=== PATIENT | male | born 1995 | race Caucasian/White ===

== ENCOUNTER 2020-11-22 19:54 | Emergency (ER) | payer OTHER ==
[~2020-11-22] VITALS: Ht 177.8 cm; Wt 75.7 kg
[2020-11-22 20:30] VITALS: BP_SYST 119
--- NOTE | 2020-11-22 20:30 | NUR ---
Pt c/o acute right hand pain and swelling x1 day. Patient reported that he had gotten angry earlier and decided to punch a basketball pole. He denied any other traumas or injuries. Denied any open wounds or bleeding/discharge. Denied numbness or motor or sensory deficits. No alleviating or exacerbating factors. Patient was prompted to come to the ED when his pain persisted. Pt breathing easy, unlabored. Pt ambulatory with steady gait
--- NOTE | 2020-11-22 20:37 | NUR ---
LETICIA Ponce in the tent examining patient.
[2020-11-22] MEDS ORDERED: IBUPROFEN 600 MG TABLET PO ONE (21:00)
--- NOTE | 2020-11-22 21:30 | NUR ---
X-ray of rt hand done by tech
--- NOTE | 2020-11-22 21:45 | NUR ---
Dr Black discussed x-ray result with patient and family
[2020-11-22 21:50] VITALS: BP_SYST 118
--- NOTE | 2020-11-22 21:50 | NUR ---
Patient given written and verbal discharge instructions by Dr Black and verbalizes understanding. ER MD discussed with patient the results and treatment provided. Patient in stable condition. ID arm band removed. Rx of Naprosyn 500 mg given. Patient educated on pain management and to follow up with PMD by Dr Black. Pain Scale 2/10 PS. Opportunity for questions provided and answered.
== END 2020-11-22 21:50 | disposition home or self-care (01) ==
LOC: SED 19:54
DX: S62.604A Fracture of unspecified phalanx of right ring finger, initial encounter for closed fracture (principal); W22.8XXA Striking against or struck by other objects, initial encounter; Y93.89 Activity, other specified; Y92.89 Other specified places as the place of occurrence of the external cause; Y99.8 Other external cause status
CPT/HCPCS: 99283